=== PATIENT | female | born 1955 | race Caucasian/White ===

== ENCOUNTER 2017-07-14 15:42 | Observation (INO) | payer OTHER ==
[~2017-07-14] VITALS: Ht 160 cm; Wt 83.0 kg
[2017-07-14 16:32] LABS: HEMATOCRIT 40.1 % (36.0-46.0); HEMOGLOBIN 13.8 G/DL (11.9-15.5); MCH 29.4 PG (29.0-34.0); MCHC 34.4 G/DL (30.0-36.0); MCV 85.5 FL (83-99); PLATELET COUNT 334 K/uL (156-360); RBC DIS.WIDTH-CV 13.1 % (11.8-14.6); RBC DIS.WIDTH-SD 40.3 % (39-53); RED BLOOD COUNT 4.69 M/uL (3.80-5.20); WHITE BLOOD COUNT 5.7 K/uL (4.1-10.2)
[2017-07-14 16:40] LABS: CHLORIDE 100 mEq/L (99-109); POTASSIUM 2.8 mEq/L (3.7-5.4); SODIUM 140 mEq/L (136-147)
[2017-07-14 16:41] LABS: GLUCOSE 106 mg/dL (70-99)
[2017-07-14 16:45] LABS: CREATININE 0.7 mg/dL (0.6-1.3); GFR ESTIMATE (CALCULATED) > 59 mL/min/
[2017-07-14 16:46] LABS: UREA NITROGEN (BUN) 7 mg/dL (9-23)
[2017-07-14 21:55] LABS: TROP-I INTERPRETATION NEGATIVE; TROPONIN-I 0.02 ng/mL (0.0-0.30)
[2017-07-14] MEDS ORDERED: LEVOTHYROXINE100 MCG PO (22:24)
[2017-07-14] MEDS ORDERED: HYDROCHLOROTHIA25 MG PO (22:25)
[2017-07-15 04:03] LABS: HEMATOCRIT 35.3 % (36.0-46.0); HEMOGLOBIN 12.2 G/DL (11.9-15.5); MCH 29.4 PG (29.0-34.0); MCHC 34.6 G/DL (30.0-36.0); MCV 85.1 FL (83-99); PLATELET COUNT 305 K/uL (156-360); RBC DIS.WIDTH-CV 13.2 % (11.8-14.6); RBC DIS.WIDTH-SD 40.5 % (39-53); RED BLOOD COUNT 4.15 M/uL (3.80-5.20); WHITE BLOOD COUNT 4.3 K/uL (4.1-10.2)
[2017-07-15 04:15] LABS: CHLORIDE 105 mEq/L (99-109); SODIUM 142 mEq/L (136-147)
[2017-07-15 04:17] LABS: GLUCOSE 104 mg/dL (70-99)
[2017-07-15 04:21] LABS: CREATININE 0.7 mg/dL (0.6-1.3); GFR ESTIMATE (CALCULATED) > 59 mL/min/; POTASSIUM 3.4 mEq/L (3.7-5.4)
[2017-07-15 04:22] LABS: UREA NITROGEN (BUN) 8 mg/dL (9-23)
[2017-07-15 04:27] LABS: TROP-I INTERPRETATION NEGATIVE; TROPONIN-I < 0.01 ng/mL (0.0-0.30)
[2017-07-15 09:19] LABS: TROP-I INTERPRETATION NEGATIVE; TROPONIN-I < 0.01 ng/mL (0.0-0.30)
[2017-07-15 14:11] VITALS: BP 116/75
== END 2017-07-15 14:49 | disposition home or self-care (01) ==
LOC: EME 15:42 → EDOF 22:07 → CANRESERV 22:09 → ENRESERV 22:09 → EDOF 07-15 14:49
PROVIDERS: Emergency Medicine; Hospitalist; Physician Assistant
DX: E87.6 Hypokalemia (principal); E86.0 Dehydration; R55 Syncope and collapse; R19.7 Diarrhea, unspecified; E03.9 Hypothyroidism, unspecified; Z96.653 Presence of artificial knee joint, bilateral; Z90.49 Acquired absence of other specified parts of digestive tract; Z82.49 Family history of ischemic heart disease and other diseases of the circulatory system; Z87.891 Personal history of nicotine dependence
CPT/HCPCS: 70450; 71046; 80048; 83880; 84443; 84484; 85027; 93005; 99281; 99284; G0378; J7030